=== PATIENT | male | born 1965 | race Caucasian/White ===

== ENCOUNTER 2019-03-24 15:49 | Emergency (ER) | payer SELFPAY ==
[~2019-03-24] VITALS: Ht 172.7 cm; Wt 84.1 kg
[2019-03-24 16:12] VITALS: BP 109/65
[2019-03-24] MEDS ORDERED: DIPHENHYDRAMINE 25 MG CAPSULE ONE (16:41)
[2019-03-24] MEDS ORDERED: DIPHENHYDRAMINE 25 MG CAPSULE PO ONE (17:00)
== END 2019-03-24 17:03 | disposition home or self-care (01) ==
LOC: ED 16:55
DX: B86 Scabies (principal)
CPT/HCPCS: 99283; Q0163